=== PATIENT | female | born 1980 | race Caucasian/White ===

== ENCOUNTER 2021-06-11 02:37 | Outpatient (CLI) | payer BC, SELFPAY ==
[2021-06-11 16:01] LABS: Abs Immature Grans 0.02 10^3/uL (0.0-0.06); Absolute Basophil Count 0.04 10^3/uL (0.0-0.2); Absolute Eosinophil Count 0.08 10^3/uL (0.0-0.7); Absolute Lymphocyte Count 2.67 10^3/uL (1.2-3.4); Absolute Monocyte Count 0.62 10^3/uL (0.1-0.8); Absolute Neutrophil Count 4.19 10^3/uL (1.2-6.7); Basophils % 0.5; HCT 41.7 % (36.0-46.0); HGB 13.9 g/dL (11.2-15.7); Immature Grans % 0.3; MCH 28.5 pg (27.0-33.0); MCHC 33.3 % (32.0-36.0); MCV 85.5 fL (80-95); MPV 9.2 fL (8.0-11.0); Monocytes % 8.1; Neutrophils % 55.1; Nucleated RBC 0 %; Platelet Count 352 10^3/uL (130-400); RBC 4.88 10^6/uL (3.93-5.22); RDW 12.5 % (11.7-14.6); RDW-SD 38.9 fL; WBC 7.62 10^3/uL (4.4-10.8)
[2021-06-11 16:17] LABS: ESR < 1 mm/hr (0-20)
[2021-06-11 17:48] LABS: ALT 23 U/L (14-59); AST 15 U/L (15-37); Albumin 4.9 g/dL (3.4-5.0); Alkaline Phosphatase 63 U/L (46-116); Anion Gap 10.6 mmol/L (3-11); BUN 10 mg/dL (7-18); Bilirubin, Total 0.8 mg/dL (0.2-1.0); C-Reactive Protein 0.05 mg/dL (0.0-0.3); CO2 26.4 mmol/L (21.0-32.0); CREATININE 0.8 mg/dL (0.55-1.02); Calcium 9.1 mg/dL (8.5-10.1); Calculated LDL 106 mg/dL (<100); Chloride 103 mmol/L (98-107); Cholesterol 187 mg/dL (<200); Glucose 86 mg/dL (74-106); HDL Cholesterol 75 mg/dL (40-60); Potassium 4.3 mmol/L (3.5-5.1); Sodium 140 mmol/L (136-145); Total Protein 8.1 g/dL (6.4-8.2); Triglyceride 32 mg/dL (<150)
== END 2021-06-11 02:38 | disposition home or self-care (01) ==
PROVIDERS: PCP Nurse Practitioner Adult Health; Visit Provider Nurse Practitioner Primary Care
DX: K50.918 Crohn's disease, unspecified, with other complication (principal); Z13.220 Encounter for screening for lipoid disorders; Z00.00 Encounter for general adult medical examination without abnormal findings
CPT/HCPCS: 36415; 80053; 80061; 85652; 85025; 86140

== ENCOUNTER 2021-06-12 15:00 | Outpatient (REF) | payer BC, SELFPAY ==
[2021-06-17 21:30] LABS: Calprotectin <50.0 mcg/g
== END 2021-06-12 15:01 | disposition home or self-care (01) ==
LOC: LBN 15:00
PROVIDERS: PCP Nurse Practitioner Adult Health; Visit Provider Nurse Practitioner Adult Health
DX: K50.919 Crohn's disease, unspecified, with unspecified complications (principal)
CPT/HCPCS: 83993

== ENCOUNTER 2024-06-15 15:57 | Outpatient (CLI) | payer BC, SELFPAY ==
--- NOTE | 2024-06-15 08:33 | DI.RAD_ITS ---
Exam(s) XR KNEE LT 3V AP,LAT,JAIME EXAM: XR KNEE LT 3V AP,LAT,JAIME CLINICAL HISTORY: LEFT KNEE PAIN. TECHNIQUE: 2D digital imaging was performed. Three views. COMPARISON: No exams were available for comparison FINDINGS: BONES: No acute fracture is present. No bony destructive lesion is seen. Small enthesophyte at quad riceps insertion on patella. JOINTS: The joint spaces are maintained. No significant periarticular spurring the knee is normally aligned. No joint effusion is seen. SOFT TISSUE: Normal. IMPRESSION: Small patellar enthesophyte. DATA REPOSITORY: RADIATION DOSE DELIVERED:
== END 2024-06-15 15:58 | disposition home or self-care (01) ==
LOC: DIORS 16:01
PROVIDERS: PCP Family Medicine; Visit Provider Student in an Organized Health Care Education/Training Program
DX: M25.562 Pain in left knee (principal)
CPT/HCPCS: 73562

== ENCOUNTER 2024-07-14 01:24 | Outpatient (CLI) | payer BC, SELFPAY ==
--- NOTE | 2024-07-14 07:00 | DI.MRI_ITS ---
Exam(s) MR LOWER JOINT LT WO EXAM: MR LOWER JOINT LT WO CLINICAL HISTORY: L KNEE PAIN,internal derangement lt knee, m23.92. TECHNIQUE: Multiplanar multisequence MRI was performed. COMPARISON: CR XR KNEE LT 3V AP,LAT,JAIME from 06/15/2024 FINDINGS: BONES: There is no fracture or contusion pattern. Subchondral cysts and mild subchondral edema is see n involving the anterior medial femoral condyle. There is mild thinning of the overlying articular c artilage. JOINTS: The articular cartilage is otherwise well maintained. There is a small amount of fluid in th e joint space. TENDONS: Extensor mechanism: Unremarkable. Medial retinaculum: Unremarkable. Lateral retinaculum: Unremarkable. Popliteus: Unremarkable. MUSCLES: Unremarkable. MENISCI: The medial meniscus is unremarkable. The lateral meniscus is unremarkable. SOFT TISSUES: Unremarkable. LIGAMENTS: Anterior Cruciate: Unremarkable. Posterior Cruciate: Unremarkable. Medial Collateral:Unremarkable. Lateral Collateral: Unremarkable. OTHER: There is a small popliteal cyst present. There may also be a small pes anserinus bursitis. IMPRESSION: 1. No evidence of a meniscal or ligament tear. 2. Arthrosis overlying the medial femoral condyle. 3. Small popliteal cyst. DATA REPOSITORY:
== END 2024-07-14 01:44 ==
PROVIDERS: PCP Family Medicine; Visit Provider Student in an Organized Health Care Education/Training Program
DX: M17.12 Unilateral primary osteoarthritis, left knee (principal)
CPT/HCPCS: 73721

== ENCOUNTER 2024-09-15 09:38 | Outpatient (REF) | payer BC, SELFPAY ==
[2024-09-16 10:54] LABS: Lyme Ab w Rflx to Lyme Confirm Negative (Negative)
[2024-09-17 23:19] LABS: Anaplasma phagocytophilum Negative (Negative); B. miyamotoi PCR Negative (Negative); Babesia divergens/MO-1 Negative (Negative); Babesia duncani Negative (Negative); Babesia microti Negative (Negative); Ehrlichia chaffeensis Negative (Negative); Ehrlichia ewingii/canis Negative (Negative); Ehrlichia muris eauclairensis Negative (Negative)
== END 2024-09-15 09:39 | disposition home or self-care (01) ==
LOC: NCHCN 09:38
PROVIDERS: PCP Family Medicine; Visit Provider Family Medicine
DX: S70.362A Insect bite (nonvenomous), left thigh, initial encounter (principal); W57.XXXA Bitten or stung by nonvenomous insect and other nonvenomous arthropods, initial encounter
CPT/HCPCS: 87798; 86618

== ENCOUNTER 2024-12-13 12:42 | Outpatient (REF) | payer BC, SELFPAY ==
--- NOTE | 2024-12-13 11:35 | PAPFT_PTH ---
PATIENT: Ad[id number] AGE/SX: 44/F ROOM: RE12/13/[address]: Livier Gentile : 1980 BED: DIS: 12/13/2024 SPEC #: [id number] RECD: 12/13/24 18:03 STATUS: JONO RETimbo #: [id number] KIRTI: 12/13/24 11:[address]: Livier Gentile DEPT: [facility] Cytology RECD BY: Mariana Meléndez Tissues: 1 - CX/ENDOCX FOR PAP SMEARS Procedures: PAP THIN PREP/[facility] Screening HPV DNA PROBE Comments: [id number] (HPV 16 & 18/45)
== END 2024-12-13 12:43 | disposition home or self-care (01) ==
LOC: NCHCN 12:42
PROVIDERS: PCP Family Medicine; Visit Provider Family Medicine
DX: Z12.4 Encounter for screening for malignant neoplasm of cervix (principal)
CPT/HCPCS: 88142; 87624

== ENCOUNTER 2024-12-20 17:23 | Outpatient (REF) | payer BC, SELFPAY ==
[2024-12-20 15:48] LABS: Cholesterol 202 mg/dL (<200); Triglyceride 70 mg/dL (<150)
[2024-12-21 05:08] LABS: Calculated LDL 111 mg/dL (<100); HDL Cholesterol 77 mg/dL (>or=50)
== END 2024-12-20 17:24 | disposition home or self-care (01) ==
LOC: NCHCN 17:23
PROVIDERS: PCP Family Medicine; Visit Provider Family Medicine
DX: Z13.220 Encounter for screening for lipoid disorders (principal)
CPT/HCPCS: 80061

== ENCOUNTER 2025-01-03 12:38 | Outpatient (REF) | payer BC, SELFPAY ==
--- NOTE | 2025-01-03 15:50 | CER_PTH ---
PATIENT: Adry Yee LOC: [facility] U#:[id number] AGE/SX: 44/F ROOM: RE01/03/[address]: Yessy Strong MD : 1980 BED: DIS: 01/03/2025 SPEC #: [id number] RECD: 01/04/25 12:58 STATUS: JONO REQ #: [id number] KIRTI: 01/03/25 15:[address]: Yessy Strong DEPT: Surgical Specimen RECD BY: Mariana Meléndez ENTERED: 01/04/25 12:59 SP TYPE: CER OTHR DR: Livier Gentile Tissues: 1 - CERVICAL BIOPSY Procedures: GROSS AND MICRO LEVEL 4 Comments: [id number]
== END 2025-01-03 12:39 | disposition home or self-care (01) ==
LOC: LBN 12:38
PROVIDERS: PCP Family Medicine; Visit Provider Obstetrics & Gynecology
DX: R87.611 Atypical squamous cells cannot exclude high grade squamous intraepithelial lesion on cytologic smear of cervix (ASC-H) (principal)
CPT/HCPCS: 88305